=== PATIENT | female | born 1995 | race Two or more races ===

== ENCOUNTER 2018-12-23 22:12 | Inpatient (IN) ==
[2018-12-23 22:56] LABS: Appearance Urine Clear (Clear); Bacteria Urine Automated Negative (Negative); Bilirubin Urine Negative (Negative); Blood Urine Negative (Negative); Color Urine Yellow; Epithelial Cell Urine Auto >30 /lpf (0-5); Glucose Urine UA Negative (Negative); Leukocyte Esterase Urine 1+ (Negative); Nitrite Urine Negative (Negative); Protein Urine 1+ (Negative); RBC Urine Automated 0-4 /hpf (0-4); Specific Gravity Urine 1.032 (1.000-1.030); Urobilinogen Urine Negative (Negative)
--- NOTE | 2018-12-23 23:10 | Emergency Department Note ---
History of Present Illness General Chief Complaint: Mental Health Evaluation Stated Complaint: MENTAL HEALTH EVAL Time Seen by Provider: 12/23/18 22:56 Source: patient Mode of arrival: ambulatory Limitations: no limitations History of Present Illness Provider complaint: suicidal ideation and feels depressed Onset (ago): month(s) 2 Duration: constant and getting worse History of same: Yes Relieved By: + none Exacerbated By: + none Context: + significant life stressor Associated psychiatric symptoms: + depression and + suicidal ideation; no homicidal ideation, no auditory hallucinations and no visual hallucinations Associated symptoms: + denies other symptoms Treatments prior to arrival: + none If self harm: + admits thoughts of self harm and + has plan This is a 23-year-old female who presents the emergency department with worsening depression and suicidal ideation on a 302 warrant a signed by [facility] help after petitioning state was made by a friend. Patient is here with 2 friends at bedside. Patient is calm and cooperative and admits to worsening depression over the last 2 months which see states is due to academic stress this semester. Patient denies any other relationship problems with friends or family. Patient is not currently involved in a romantic relationship. Patient states today was the first time she had thoughts of wanting to hurt herself. Patient has c onsidered cutting herself, overdosing, however the 302 mentions that she had verbalized hanging herself also. Patient denies any prior history of anxiety or depression. Denies similar thoughts previously. Patient denies any thoughts of wanting to hurt anyone else, denies symptoms of paranoia or hallucinations. Patient is not currently taking any medications. Denies any chance of . Home Medications Home Medications Medication Instructions Recorded Confirmed Type No Known Home Medications 12/24/18 12/24/18 History Allergies Allergy/AdvReac Type Severity Reaction Status Date / Time No Known Allergies Allergy Unverified 12/24/18 07:25 Past Med/Surg History Social History Preferred Language: Vietnamese Feels Safe at Home: Yes Smoking Status: Never smoker Review of Systems See HPI for pertinent positives & negatives. and A total of 10 systems reviewed and were otherwise negative Physical Exam Vital Signs Vital Signs - 24 hr 12/23/18 22:19 12/24/18 00:15 12/24/18 07:24 Temperature 36.3 C L Temperature Source Oral Sepsis Recent Fever Within 48 Hours No Sepsis New/Unexplained Change in Mental Status No Sepsis Action Taken by Nursing No Action Required Pulse Rate 93 H Pulse Rate [Right Finger] 101 H 74 Pulse Rhythm [Right Finger] Regular Pulse Strength [Right Finger] Normal Respiratory Rate 18 20 20 Respiratory Effort / Characteristics Non-Labored Spontaneous Non-Labored Spontaneous Respiratory Depth Normal Normal Respiratory Pattern Regular Blood Pressure 140/90 Blood Pressure [Left Arm] 151/92 H 111/75 Blood Pressure Mean 106 Blood Pressure Mean [Left Arm] 111 87 Blood Pressure Position [Left Arm] Standing Pulse Oximetry 99 100 97 Oxygen Delivery Method Room Air Room Air Room Air GENERAL: alert, well appearing, well nourished, no distress, non-toxic EYE EXAM: normal conjunctiva, PERRL and EOM's grossly intact OROPHARYNX: no exudate, no erythema, lips, buccal mucosa, and tongue normal and mucous membranes are moist NECK: supple, no nuchal rigidity, no adenopathy, non-tender LUNGS: Clear to auscultation. Normal chest wall mechanics, no w/r/r HEART: no murmurs, S1 normal and S2 normal ABDOMEN: abdomen soft, non-tender, normo-active bowel sounds, no masses, no rebound or guarding. BACK: Back is symmetrical on inspection and there is no deformity, no midline tenderness, no CVA tenderness. SKIN: no rashes and no bruising UPPER EXTREMITIES: upper extremities are grossly normal. FROM, nml pulses b/l. LOWER EXTREMITIES: No pitting edema. FROM, nml pulses b/l. NEURO EXAM: Normal sensorium, cranial nerves II-XII grossly intact, normal speech, no gross weakness of arms, no gross weakness of legs. Gross sensation intact. Course 2258: Patient seen and examined in room A7. 0200: Pt seen and evaluated by psych supervisor case loading. Pt willing to sign in voluntarily and wants to be admitted to . 0725: Discussed with psych supervisor case loading. Pt still willing to be admitted voluntarily. Medical Decision Making Differential Diagnosis Differential diagnoses considered include mood disorder, infection, hypoglycemia, electrolyte abnormalities, cardiac sources, intracerebral event, toxicologic, neurologic, as well as others. Laboratory Data Result diagrams: 12/23/18 23:15 12/23/18 23:16 Lab Results 12/23/18 12/23/18 12/23/18 Range/Units 22:40 22:40 23:15 WBC 8.74 (4.8-10.8) K/uL RBC 4.20 (4.2-5.4) M/uL Hgb 13.1 (12.0-16.0) g/dL Hct 38.1 (37-47) % MCV 90.7 (80-100) fL MCH 31.2 (25-34) pg MCHC 34.4 (32-36) g/dL RDW Std Deviation 45.2 (36.4-46.3) fL RDW Coeff of Maribeth 13.7 (11.5-14.5) % Plt Count 287 (130-400) K/uL MPV 9.0 (7.4-10.4) fL Immature Gran % (Auto) 0.1 % Neut % (Auto) 75.0 % Lymph % (Auto) 18.6 % Amelia % (Auto) 4.7 % Eos % (Auto) 1.3 % Baso % (Auto) 0.3 % Immature Gran # (Auto) 0.01 (0.00-0.02) K/uL Neut # (Auto) 6.55 H (1.4-6.5) K/uL Lymph # (Auto) 1.63 (1.2-3.4) K/uL Amelia # (Auto) 0.41 (0.11-0.59) K/uL Eos # (Auto) 0.11 (0-0.5) K/uL Baso # (Auto) 0.03 (0-0.2) K/uL Sodium (136-145) mmol/L Potassium (3.5-5.1) mmol/L Chloride (98-107) mmol/L Carbon Dioxide (21-32) mmol/L Anion Gap (3-11) BUN (7-18) mg/dl Creatinine (0.6-1.2) mg/dl Est Cr Clr Drug Dosing ml/min Est GFR ( Amer) Est GFR (Non-Af Amer) BUN/Creatinine Ratio (10-20) Glucose (70-99) mg/dl Calcium (8.5-10.1) mg/dl Total Bilirubin (0.2-1) mg/dl AST (15-37) U/L ALT (12-78) U/L Alkaline Phosphatase (45-117) U/L Total Protein (6.4-8.2) gm/dl Albumin (3.4-5.0) gm/dl Globulin (2.5-4.0) gm/dl Albumin/Globulin Ratio (0.9-2) TSH (0.300-4.500) uIu/ml HCG, Qual (Negative) Urine Color Yellow Urine Appearance Clear (Clear) Urine pH 5.0 (4.5-7.5) Ur Specific [place] 1.032 H (1.000-1.030) Urine Protein 1+ H (Negative) Urine Glucose (UA) Negative (Negative) Urine Ketones 4+ H (Negative) Urine Blood Negative (Negative) Urine Nitrite Negative (Negative) Urine Bilirubin Negative (Negative) Urine Urobilinogen Negative (Negative) Ur Leukocyte Esterase 1+ H (Negative) Urine WBC (Auto) 10-30 H (0-5) /hpf Urine RBC (Auto) 0-4 (0-4) /hpf U Hyaline Cast (Auto) 10-30 H (0-5) /lpf U Epithel Cells (Auto) >30 H (0-5) /lpf Urine Bacteria (Auto) Negative (Negative) Salicylates (2.8-20) mg/dl Urine Opiates Screen Neg (Neg) Ur Methadone, Qual Neg (Neg) Acetaminophen (10-30) ug/ml Urine Barbiturates Neg (Neg) Ur Phencyclidine (PCP) Neg (Neg) U Amphetamin/Meth Scrn Neg (Neg) MDMA (Ecstasy) Screen Neg (Neg) U Benzodiazepines Scrn Neg (Neg) Ur Cocaine Metabolite Neg (Neg) U Marijuana (THC) Screen Neg (Neg) Ethyl Alcohol mg/dL (0-3) mg/dl 12/23/18 12/23/18 12/23/18 Range/Units 23:15 23:15 23:16 WBC (4.8-10.8) K/uL RBC (4.2-5.4) M/uL Hgb (12.0-16.0) g/dL Hct (37-47) % MCV (80-100) fL MCH (25-34) pg MCHC (32-36) g/dL RDW Std Deviation (36.4-46.3) fL RDW Coeff of Maribeth (11.5-14.5) % Plt Count (130-400) K/uL MPV (7.4-10.4) fL Immature Gran % (Auto) % Neut % (Auto) % Lymph % (Auto) % Amelia % (Auto) % Eos % (Auto) % Baso % (Auto) % Immature Gran # (Auto) (0.00-0.02) K/uL Neut # (Auto) (1.4-6.5) K/uL Lymph # (Auto) (1.2-3.4) K/uL Amelia # (Auto) (0.11-0.59) K/uL Eos # (Auto) (0-0.5) K/uL Baso # (Auto) (0-0.2) K/uL Sodium 140 (136-145) mmol/L Potassium 3.2 L (3.5-5.1) mmol/L Chloride 107 (98-107) mmol/L Carbon Dioxide 26 (21-32) mmol/L Anion Gap 7.0 (3-11) BUN 12 (7-18) mg/dl Creatinine 0.65 (0.6-1.2) mg/dl Est Cr Clr Drug Dosing 108.3 ml/min Est GFR ( Amer) 147.1 Est GFR (Non-Af Amer) 126.9 BUN/Creatinine Ratio 18.6 (10-20) Glucose 102 H (70-99) mg/dl Calcium 9.7 (8.5-10.1) mg/dl Total Bilirubin 0.6 (0.2-1) mg/dl AST 18 (15-37) U/L ALT 22 (12-78) U/L Alkaline Phosphatase 59 (45-117) U/L Total Protein 8.2 (6.4-8.2) gm/dl Albumin 4.2 (3.4-5.0) gm/dl Globulin 4.0 (2.5-4.0) gm/dl Albumin/Globulin Ratio 1.0 (0.9-2) TSH 0.930 (0.300-4.500) uIu/ml HCG, Qual Negative (Negative) Urine Color Urine Appearance (Clear) Urine pH (4.5-7.5) Ur Specific [place] (1.000-1.030) Urine Protein (Negative) Urine Glucose (UA) (Negative) Urine Ketones (Negative) Urine Blood (Negative) Urine Nitrite (Negative) Urine Bilirubin (Negative) Urine Urobilinogen (Negative) Ur Leukocyte Esterase (Negative) Urine WBC (Auto) (0-5) /hpf Urine RBC (Auto) (0-4) /hpf U Hyaline Cast (Auto) (0-5) /lpf U Epithel Cells (Auto) (0-5) /lpf Urine Bacteria (Auto) (Negative) Salicylates (2.8-20) mg/dl Urine Opiates Screen (Neg) Ur Methadone, Qual (Neg) Acetaminophen (10-30) ug/ml Urine Barbiturates (Neg) Ur Phencyclidine (PCP) (Neg) U Amphetamin/Meth Scrn (Neg) MDMA (Ecstasy) Screen (Neg) U Benzodiazepines Scrn (Neg) Ur Cocaine Metabolite (Neg) U Marijuana (THC) Screen (Neg) Ethyl Alcohol mg/dL < 3.0 (0-3) mg/dl 12/23/18 Range/Units 23:16 WBC (4.8-10.8) K/uL RBC (4.2-5.4) M/uL Hgb (12.0-16.0) g/dL Hct (37-47) % MCV (80-100) fL MCH (25-34) pg MCHC (32-36) g/dL RDW Std Deviation (36.4-46.3) fL RDW Coeff of Maribeth (11.5-14.5) % Plt Count (130-400) K/uL MPV (7.4-10.4) fL Immature Gran % (Auto) % Neut % (Auto) % Lymph % (Auto) % Amelia % (Auto) % Eos % (Auto) % Baso % (Auto) % Immature Gran # (Auto) (0.00-0.02) K/uL Neut # (Auto) (1.4-6.5) K/uL Lymph # (Auto) (1.2-3.4) K/uL Amelia # (Auto) (0.11-0.59) K/uL Eos # (Auto) (0-0.5) K/uL Baso # (Auto) (0-0.2) K/uL Sodium (136-145) mmol/L Potassium (3.5-5.1) mmol/L Chloride (98-107) mmol/L Carbon Dioxide (21-32) mmol/L Anion Gap (3-11) BUN (7-18) mg/dl Creatinine (0.6-1.2) mg/dl Est Cr Clr Drug Dosing ml/min Est GFR ( Amer) Est GFR (Non-Af Amer) BUN/Creatinine Ratio (10-20) Glucose (70-99) mg/dl Calcium (8.5-10.1) mg/dl Total Bilirubin (0.2-1) mg/dl AST (15-37) U/L ALT (12-78) U/L Alkaline Phosphatase (45-117) U/L Total Protein (6.4-8.2) gm/dl Albumin (3.4-5.0) gm/dl Globulin (2.5-4.0) gm/dl Albumin/Globulin Ratio (0.9-2) TSH (0.300-4.500) uIu/ml HCG, Qual (Negative) Urine Color Urine Appearance (Clear) Urine pH (4.5-7.5) Ur Specific [place] (1.000-1.030) Urine Protein (Negative) Urine Glucose (UA) (Negative) Urine Ketones (Negative) Urine Blood (Negative) Urine Nitrite (Negative) Urine Bilirubin (Negative) Urine Urobilinogen (Negative) Ur Leukocyte Esterase (Negative) Urine WBC (Auto) (0-5) /hpf Urine RBC (Auto) (0-4) /hpf U Hyaline Cast (Auto) (0-5) /lpf U Epithel Cells (Auto) (0-5) /lpf Urine Bacteria (Auto) (Negative) Salicylates < 1.7 L (2.8-20) mg/dl Urine Opiates Screen (Neg) Ur Methadone, Qual (Neg) Acetaminophen < 2 L (10-30) ug/ml Urine Barbiturates (Neg) Ur Phencyclidine (PCP) (Neg) U Amphetamin/Meth Scrn (Neg) MDMA (Ecstasy) Screen (Neg) U Benzodiazepines Scrn (Neg) Ur Cocaine Metabolite (Neg) U Marijuana (THC) Screen (Neg) Ethyl Alcohol mg/dL (0-3) mg/dl Blood Pressure Blood Pressure Findings: Normal blood pressure MDM Narrative Pt here calm and cooperative. Willing to sign in voluntarily. Pt made 302 warrant by [facility] initially. No prior psych hx. VS stable. Labs reassuring. UA suboptimal and suggestive of dehydration. Pt with no symptoms. Will await urine culture at this time. Impression & Plan Depression, Suicidal ideation Discharge Plan Visit Data Chief Complaint: Mental Health Evaluation Stated Complaint: MENTAL HEALTH EVAL ED Provider: Sun Wolf Discharge Problem: Depression, Suicidal ideation Forms Stand Alone Forms: Edai Prescriptions Prescriptions: No Action No Known Home Medications RF: 0 Discharge Problem: Depression Qualifiers: Depression Type: unspecified Qualified Code(s): F32.9 - Major depressive disorder, single episode, unspecified
[2018-12-23 23:11] LABS: Amphetamines+Metham, Urine Neg (Neg); Barbiturates, Urine Neg (Neg); Benzodiazepine, Urine Neg (Neg); Cocaine, Urine Neg (Neg); MDMA (Ecstacy), Urine Neg (Neg); Methadone, Urine Neg (Neg); Opiate, Urine Neg (Neg); Phencyclidine, Urine Neg (Neg)
[2018-12-23 23:31] LABS: Basophils # (auto) 0.03 K/uL (0-0.2); Basophils % (auto) 0.3 %; Eosinophils # (auto) 0.11 K/uL (0-0.5); Eosinophils % (auto) 1.3 %; Hematocrit (blood only) 38.1 % (37-47); Hemoglobin 13.1 g/dL (12.0-16.0); Immature Granulocytes # (auto) 0.01 K/uL (0.00-0.02); Immature Granulocytes % (auto) 0.1 %; Lymphocytes # (auto) 1.63 K/uL (1.2-3.4); Lymphocytes % (auto) 18.6 %; Mean Corpuscular Hgb Conc 34.4 g/dL (32-36); Mean Corpuscular Volume 90.7 fL (80-100); Monocytes # (auto) 0.41 K/uL (0.11-0.59); Monocytes % (auto) 4.7 %; Neutrophils # (auto) 6.55 K/uL (1.4-6.5); Platelet Count 287 K/uL (130-400); RDW Coefficient of Variation 13.7 % (11.5-14.5); RDW Standard Deviation 45.2 fL (36.4-46.3); White Blood Count 8.74 K/uL (4.8-10.8)
[2018-12-23 23:50] LABS: Albumin Level 4.2 gm/dl (3.4-5.0); BUN Creatinine Ratio 18.6 (10-20); Calcium 9.7 mg/dl (8.5-10.1); Creatinine Clr Calc Pharmacy 108.3 ml/min; Est GFR (African American) 147.1; Est GFR (Non-African American) 126.9; Potassium 3.2 mmol/L (3.5-5.1)
[2018-12-23 23:54] LABS: Ketones Urine 4+ (Negative)
[2018-12-24] LABS: Bilirubin,Total 0.6 mg/dl (0.2-1); Total Protein 8.2 gm/dl (6.4-8.2)
[2018-12-24 00:13] LABS: Pregnancy Test, Serum Negative (Negative)
[2018-12-24 00:31] LABS: Acetaminophen < 2 ug/ml (10-30)
[2018-12-24 00:32] LABS: Salicylate < 1.7 mg/dl (2.8-20)
[2018-12-24] MEDS ORDERED: BISMUTH SUBSALICYLATE PER ML OMNICELL CHARGE PO PRN (13:11)
[2018-12-24] MEDS ORDERED: ALUMINUM/MAGNESIUM SUSP 30 ML UDC PO PRN (13:11)
[2018-12-24] MEDS ORDERED: SODIUM CHLORIDE 0.65% NA SOLN 45 ML (OCEAN) PRN (13:11)
[2018-12-24] MEDS ORDERED: MAGNESIUM HYDROXIDE SUSP 30 ML UDC PO PRN (13:11)
[2018-12-24] MEDS ORDERED: ACETAMINOPHEN 325 MG TAB PO PRN (13:11)
--- NOTE | 2018-12-24 13:57 | Emergency Department Note ---
ED Visit Note Patient was signed out to me at the change of shift by Dr. de la cruz. Patient has suicidal thoughts and was agreeable in . Patient was accepted to 3 [facility]. on . . : Depression Qualifiers: Depression Type: unspecified Qualified Code(s): F32.9 - Major depressive disorder, single episode, unspecified
--- NOTE | 2018-12-24 18:36 | History & Physical ---
Date of Service December 24, 2018 Impression / Recommendations Impression 23-year-old female admitted voluntarily for inpatient psychiatric treatment, signing 72-hour notice immediately after admission to the unit. Pt reports worsening anxiety this semester, predominantly related to school stress. Pt states she had experienced SI yesterday due to the level of anxiety she had been experiencing. She reported specific plan to hang herself, but was brought to ED last evening after friends had contacted [facility]. By patient's reports alone, she does not meet criteria for a formal anxiety disorder, but anxiety has been elevated to the point of consideration to end her life. Given lack of clear anxiety disorder, there is no obvious indication to suggest need for medications at this time. Will attempt to gather collateral information, to either confirm patient's reports or determine if there is any minimization of symptoms. At this time, patient requires inpatient psychiatric treatment in order to ensure safety. With reported incidence of SI, patient is at risk of decompensation and harm to herself if discharged prematurely. Dr. Ashtyn Canela was directly involved in review and discussion of the patient's case and participated in medical decision making regarding treatment recommendations. (1) Suicidal ideation: 12/24 - Admitted to a locked inpatient behavioral health unit, on q15 minute safety checks - Encourage medication initiation/adjustments as indicated - Encourage participation in group and recreational therapies - Gather collateral information from outpatient providers - Suggest family meeting to involve outpatient supports in safety planning - Arrange appropriate aftercare (2) Anxiety disorder: 12/24 - R/O generalized anxiety disorder, panic disorder, as well as depressive disorder; no clear criteria provided by patient, but there could be some aspect of minimizing - No indication for initiation of medications based on patient's reports, continue to reassess need during her stay - Gather collateral information from outpatient supports, would be helpful to speak with her friends and petitioner on 302 - Pt has submitted her 72-hr notice, will attempt adequate aftercare arrangements and safety planning in that timeframe Anxiety disorder type: unspecified anxiety disorder Qualified Code(s): F41.9 - Anxiety disorder, unspecified Inventory Assets Strengths: support from friends, intelligence Needs: academic stress, need to develop healthy and effective coping strategies Risk Factors Assessment Male: No : No Do You Have Access To A Gun?: No Health Problems: No Mental Health Diagnoses: No Substance Use Disorders: No Previous Attempt: No Family History of Suicide: No Previous Psychiatric Hospitalization: No Hopelessness: Yes (occasionally) Smoker: No Protective Factors Assessment Zoroastrian Beliefs: No : No Responsible for Young Children: No Employed: No Stable Relationships: Yes Supportive Family: Yes Psychiatric History Identifying Data CHANELL BAILON is a 23-year-old F [employer] Senior who currently lives in [place], [place]. Pt denies previous psychiatric history, but was brought to ED on a 302 warrant completed by [facility]. Pt was admitted on 12/24/18 14:02 on a 201 voluntary commitment for worsening anxiety and SI with reported plan to hang herself. Pt signed 72-hour notice upon admission. Information is gathered from the patient and is considered to be reliable. Chief Complaint "It's just been a lot of stress from school." History of Present Illness Chanell Bailon is a 23-year-old female [employer] Senior who presented to the ED on a 302 warrant for anxiety and suicidal ideation voiced to friends. Pt was reportedly willing for treatment and was admitted voluntarily, states she signed a 72-hour notice after arriving on the unit. Pt reports primary stressor of academic stress. Pt tells this provider, "it's just been a lot of stress, it only got back this semester." Pt states that she is taking a heavy course load, as this was to be her last semester. Pt states she is not struggling in regard to grades, but has been reaching her limit in regard to keeping up with her high academic standards. Pt reports that she had experienced extreme anxiety last evening, and had disclosed to her friends thoughts of harming herself. Pt states she had a plan to hang herself, but her friend was present with her. Pt tells this provider that she believes she was likely to act on these thoughts had her friend not been present. Pt denies previous episodes of SI, and friends were concerned about the patient's ability to keep herself safe. Pt shares with this provider that anxiety related to school performance began in high school. She admits that she has always been pleased with her school performance, but is under additional stress to keep up her grades now that she is taking more classes. 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 Pt is aware that she may need to complete an extra semester of school in order to finish her course work and reduce stress. Pt reports symptoms of anxiety of crying spells and increased emotionality with stress, difficulty concentrating, decreased appetite, and occasional restlessness. Physical symptoms of anxiety include tremor and muscle tension. Pt does not believe she has ever experienced a panic episode before. Pt denies depressive symptoms, stating her mood has been "about normal" for her. She does admit to hopelessness yesterday, in the context of her suicidality and increased anxiety. Pt states she has been intentional about exercising more routinely, and finds it to be beneficial for stress. She has no psychiatric history, has not been on psychotropic medications, and denies previous therapy sessions. Pt denies HI, SIB, A/V hallucinations, paranoia, susi/hypomania, other symptoms more suggestive of a bipolar presentation, OCD, PTSD, eating disorder, and other specific psychiatric symptoms. Past Psychiatric History Previous Psych History: Pt denies previous psychiatric history. No previous medication trials. No previous experience with outpatient therapy. Current Psychiatric Diagnosis: Anxiety disorder, unspecified Outpatient Services: None presently Previous Psych Admissions: None Do You Have Access To A Gun?: No History of Previous Suicide Attempt: No Describe Attempts in the Past: Denies prior attempts, 'situational crisis' Past Medication Trials: None Past Head Trauma/Neuro History History of Concussion/Seizure: No Allergies Allergy/AdvReac Type Severity Reaction Status Date / Time No Known Allergies Allergy Unverified 12/24/18 07:25 Home Medications Home Medications Medication Instructions Recorded Confirmed Type No Known Home Medications 12/24/18 12/24/18 History Family History Family History of: None Family Mental Health History Comment: father alcoholic. Alcohol History Hx of Alcohol Use Over the Past 12 Months: Yes (1X/week/2 drinks) AUDIT Total Score: 2 Smoking Use Have You Smoked or Used Tobacco Products in the Last 30 Days: No Smoking Status: Never smoker Substance History Hx of Prescription Med Misuse Over the Past 12 Months: No Hx of Over the Counter Med Misuse Over the Past 12 Months: No Hx of Inhalent Misuse Over the Past 12 Months: No Hx of Organic Substance Use Over the Past 12 Months: No Hx of Illegal Substances/Street Drug Use Over Past 12 Months: No Problems as a Result of Past Substance Use: None Identified Personal History Living Arrangements: [facility]artment Born In: [place], near [facility] Childhood: Pt grew up near [place], [place]. Grew up in a home with her mother and older brother. Pt's parents when she was 9y/o, she denies current relationship with her father. Pt considers her home life to be "normal." Highest Grade Completed: High School Graduate Highest Grade Completed Comment: currently senior at [employer] studying political science. Employment Status: Student Marital Status: Single Number Of Children: none Beliefs That Will Affect Care: None Current Legal Problems: No Hx Legal Problems: No Hx Traumatic Life Events: No Patient History Family History Other Breast cancer Dyslipidemia Social History Preferred Language: Dutch Communication Ability: Effective Plush Brusher Required: No Beliefs That Will Affect Care: None Feels Safe at Home: Yes Smoking Status: Never smoker Review of Systems Constitutional: reports weight loss of 20lbs in the past 2 months - combination of decreased appetite and increased exercise Cardiovascular: denied Respiratory: denied Gastrointestinal: denied Neurological: denied Psychiatric: denies symptoms other than stated above Total of at least 10 systems reviewed, pertinent positives as above and in HPI. Physical Exam Psychiatric Orientation: alert, oriented x 3 and cooperative Apperance: appropriately dressed (in paper scrubs), appropriately groomed and appeared stated age Obese female of what is believed to be descent, well-groomed with long hair. Level of hygiene appears adequate. Has yet to change out of paper scrubs. Seated in no acute distress Eye Contact: good eye contact Motor Behavior: steady gait and station and no abnormal motor movements Speech: normal rate/rhythm/volume of speech Affect: + blunted affect (not overtly depressed) Mood: + anxious mood ("there's just a lot of stress" and "I get emotional a lot") Thought Process: goal directed thought process, linear/logical thought process and clear/coherent thought process Thought Content: reality based without delusions Suicidal Thoughts: denies suicidal thoughts (reports SI prior to admission); + reports suicidal plan (reported plan to hang herself) and + reports suicidal in tent (admits it is likely she would have acted on SI if friend was not present) Homicidal Thoughts: denies homicidal thoughts Hallucinations: no auditory hallucinations and no visual hallucinations Cognition: recent memory grossly intact, remote memory grossly intact, attention grossly intact and language grossly intact Estimated Intelligence: average estimated intelligence and consistent with education level Insight: + limited insight Judgement: + limited judgement Vital Signs (Past 24 Hours) Last Vital Signs Temp 36.7 C 12/24/18 14:28 Pulse 55 L 12/24/18 14:28 Resp 14 12/24/18 14:28 BP 112/75 12/24/18 14:28 Pulse Ox 100 12/24/18 12:15 A physical exam was performed in the ER prior to admission to the unit by Dr. Sun Wolf DO. I accept that physical as correct/medical clearance for the inpatient physical exam. Results & Data Laboratory Results Laboratory Results - last 24 hr 12/23/18 12/23/18 12/23/18 22:40 22:40 23:15 WBC 8.74 RBC 4.20 Hgb 13.1 Hct 38.1 MCV 90.7 MCH 31.2 MCHC 34.4 RDW Std Deviation 45.2 RDW Coeff of Maribeth 13.7 Plt Count 287 MPV 9.0 Immature Gran % (Auto) 0.1 Neut % (Auto) 75.0 Lymph % (Auto) 18.6 Elliott % (Auto) 4.7 Eos % (Auto) 1.3 Baso % (Auto) 0.3 Immature Gran # (Auto) 0.01 Neut # (Auto) 6.55 H Lymph # (Auto) 1.63 Elliott # (Auto) 0.41 Eos # (Auto) 0.11 Baso # (Auto) 0.03 Sodium Potassium Chloride Carbon Dioxide Anion Gap BUN Creatinine Est Cr Clr Drug Dosing Est GFR ( Amer) Est GFR (Non-Af Amer) BUN/Creatinine Ratio Glucose Calcium Total Bilirubin AST ALT Alkaline Phosphatase Total Protein Albumin Globulin Albumin/Globulin Ratio TSH HCG, Qual Urine Color Yellow Urine Appearance Clear Urine pH 5.0 Ur Specific Lupton 1.032 H Urine Protein 1+ H Urine Glucose (UA) Negative Urine Ketones 4+ H Urine Blood Negative Urine Nitrite Negative Urine Bilirubin Negative Urine Urobilinogen Negative Ur Leukocyte Esterase 1+ H Urine WBC (Auto) 10-30 H Urine RBC (Auto) 0-4 U Hyaline Cast (Auto) 10-30 H U Epithel Cells (Auto) >30 H Urine Bacteria (Auto) Negative Salicylates Urine Opiates Screen Neg Ur Methadone, Qual Neg Acetaminophen Urine Barbiturates Neg Ur Phencyclidine (PCP) Neg U Amphetamin/Meth Scrn Neg MDMA (Ecstasy) Screen Neg U Benzodiazepines Scrn Neg Ur Cocaine Metabolite Neg U Marijuana (THC) Screen Neg Ethyl Alcohol mg/dL 12/23/18 12/23/18 12/23/18 23:15 23:15 23:16 WBC RBC Hgb Hct MCV MCH MCHC RDW Std Deviation RDW Coeff of Maribeth Plt Count MPV Immature Gran % (Auto) Neut % (Auto) Lymph % (Auto) Elliott % (Auto) Eos % (Auto) Baso % (Auto) Immature Gran # (Auto) Neut # (Auto) Lymph # (Auto) Elliott # (Auto) Eos # (Auto) Baso # (Auto) Sodium 140 Potassium 3.2 L Chloride 107 Carbon Dioxide 26 Anion Gap 7.0 BUN 12 Creatinine 0.65 Est Cr Clr Drug Dosing 108.3 Est GFR ( Amer) 147.1 Est GFR (Non-Af Amer) 126.9 BUN/Creatinine Ratio 18.6 Glucose 102 H Calcium 9.7 Total Bilirubin 0.6 AST 18 ALT 22 Alkaline Phosphatase 59 Total Protein 8.2 Albumin 4.2 Globulin 4.0 Albumin/Globulin Ratio 1.0 TSH 0.930 HCG, Qual Negative Urine Color Urine Appearance Urine pH Ur Specific Lupton Urine Protein Urine Glucose (UA) Urine Ketones Urine Blood Urine Nitrite Urine Bilirubin Urine Urobilinogen Ur Leukocyte Esterase Urine WBC (Auto) Urine RBC (Auto) U Hyaline Cast (Auto) U Epithel Cells (Auto) Urine Bacteria (Auto) Salicylates Urine Opiates Screen Ur Methadone, Qual Acetaminophen Urine Barbiturates Ur Phencyclidine (PCP) U Amphetamin/Meth Scrn MDMA (Ecstasy) Screen U Benzodiazepines Scrn Ur Cocaine Metabolite U Marijuana (THC) Screen Ethyl Alcohol mg/dL < 3.0 12/23/18 23:16 WBC RBC Hgb Hct MCV MCH MCHC RDW Std Deviation RDW Coeff of Maribeth Plt Count MPV Immature Gran % (Auto) Neut % (Auto) Lymph % (Auto) Elliott % (Auto) Eos % (Auto) Baso % (Auto) Immature Gran # (Auto) Neut # (Auto) Lymph # (Auto) Elliott # (Auto) Eos # (Auto) Baso # (Auto) Sodium Potassium Chloride Carbon Dioxide Anion Gap BUN Creatinine Est Cr Clr Drug Dosing Est GFR ( Amer) Est GFR (Non-Af Amer) BUN/Creatinine Ratio Glucose Calcium Total Bilirubin AST ALT Alkaline Phosphatase Total Protein Albumin Globulin Albumin/Globulin Ratio TSH HCG, Qual Urine Color Urine Appearance Urine pH Ur Specific Lupton Urine Protein Urine Glucose (UA) Urine Ketones Urine Blood Urine Nitrite Urine Bilirubin Urine Urobilinogen Ur Leukocyte Esterase Urine WBC (Auto) Urine RBC (Auto) U Hyaline Cast (Auto) U Epithel Cells (Auto) Urine Bacteria (Auto) Salicylates < 1.7 L Urine Opiates Screen Ur Methadone, Qual Acetaminophen < 2 L Urine Barbiturates Ur Phencyclidine (PCP) U Amphetamin/Meth Scrn MDMA (Ecstasy) Screen U Benzodiazepines Scrn Ur Cocaine Metabolite U Marijuana (THC) Screen Ethyl Alcohol mg/dL Current Inpatient Medications Current Inpatient Medications: Current Inpatient Medications Acetaminophen (Tylenol) 650 mg PO Q4H PRN PRN Reason: Headache or Minor Fever Stop: 01/23/19 13:10 Al Hydrox/Mg Hydrox/Simethicone (Maalox) 30 ml PO Q4H PRN PRN Reason: GI Upset Stop: 01/23/19 13:10 Bismuth Subsalicylate (Kaopectate) 15 ml PO PRN PRN PRN Reason: Loose Stool Stop: 01/23/19 13:10 Hydroxyzine HCl (Vistaril) 25 mg PO Q4H PRN PRN Reason: Anxiety Stop: 01/23/19 13:10 Hydroxyzine HCl (Vistaril) 50 mg PO HSZ PRN PRN Reason: Insomnia Stop: 01/23/19 13:10 Magnesium Hydroxide (Milk Of Magnesia) 30 ml PO DAILY PRN PRN Reason: Heartburn Stop: 01/23/19 13:10 Sodium Chloride ([place] Nasal) 1 - 2 sprays NA PRN PRN PRN Reason: Nasal Dryness/Congestion Stop: 01/23/19 13:10 CPT Code CPT Code Initial Hospital Care: [id number]
--- NOTE | 2018-12-25 09:31 | Psychiatric Progress Note ---
Date of Service December 25, 2018 Impression / Recommendations Impression Patient feels safe in the hospital, and is denying SI here, but reports ongoing anxiety related to severe school stress. Will attempt to gather collateral information, to either confirm patient's reports or determine if there is any minimization of symptoms. She will need a family meeting with her mother, follow-up with the [facility] regarding her academic issues, and referral for outpatient therapy. (1) Suicidal ideation: 12/24 - Admitted to a locked inpatient behavioral health unit, on q15 minute safety checks - Encourage medication initiation/adjustments as indicated - Encourage participation in group and recreational therapies - Gather collateral information from outpatient providers - Suggest family meeting to involve outpatient supports in safety planning - Arrange appropriate aftercare 12/25 - Patient feels safe here. Encourage focus on healthy coping skills and a discharge safety plan. (2) Anxiety disorder: 12/24 - R/O generalized anxiety disorder, panic disorder, as well as depressive disorder; no clear criteria provided by patient, but there could be some aspect of minimizing - No indication for initiation of medications based on patient's reports, continue to reassess need during her stay - Gather collateral information from outpatient supports, would be helpful to speak with her friends and petitioner on 302 - Pt has submitted her 72-hr notice, will attempt adequate aftercare arrangements and safety planning in that timeframe 12/25 -Continue to attend and participate in groups and therapy, work on coping skills, and refer for outpatient therapy. Family meeting with mother. Inventory Assets Strengths: support from friends, intelligence Needs: academic stress, need to develop healthy and effective coping strategies Risk Factors Assessment Male: No : No Do You Have Access To A Gun?: No Health Problems: No Mental Health Diagnoses: No Substance Use Disorders: No Previous Attempt: No Family History of Suicide: No Previous Psychiatric Hospitalization: No Hopelessness: Yes (occasionally) Smoker: No Protective Factors Assessment Cheondoism Beliefs: No : No Responsible for Young Children: No Employed: No Stable Relationships: Yes Supportive Family: Yes Interval History Identifying Information CHANELL DALE is a 23-year-old 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 Pt denies previous psychiatric history, but was brought to ED on a 302 warrant completed by [facility]. Pt was admitted on 12/24/18 14:02 on a 201 voluntary commitment for worsening anxiety and SI with reported plan to hang herself. Pt signed 72-hour notice upon admission. Chief Complaint "Better, less stress here". Review of Systems Sleep Information Total Hours of Sleep: 8.25 Meal Information Percent Meal Consumed - Dinner: 100 Subjective Subjective Patient was seen & assessed and interval progress reviewed with Treatment Team. Staff report she submitted a 72-hour notice requesting to withdraw from treatment shortly after signing in voluntarily. She endorsed anxiety related to school stress, and said she would like help to learn how to manage that. She had already told her mother that she would not be able to graduate, and feels she is supportive. On my assessment, the patient reports she is feeling better here, as she is away from her stress (school). She confirms that she found out two days ago that she is failing her political science class, which means she won't be able to graduate as planned in January, and will need to come back in the fall. She knew she was doing poorly in the class, but hoped to be able to work something out with the professor. She heard from the professor on Saturday that she would not be able to pass and would have to take the class again. She says mood was okay prior to that, an "went way down" after finding out she couldn't graduate. She admits to SI at that time, but denies suicidal thoughts since coming to the hospital. She reports good support form a friend and her family (lives with mother outside of [facility] in summer). She is planning to go home over the summer and get a job. She is hoping to work on healthy coping strategies here, and is willing for a meeting with her mother. Physical Exam Psychiatric Orientation: alert, oriented x 3 and cooperative Apperance: appropriately dressed, appropriately groomed and appeared stated age Eye Contact: + fair eye contact Motor Behavior: steady gait and station and no abnormal motor movements Speech: normal rate/rhythm/volume of speech Affect: + anxious affect "Better." Thought Process: goal directed thought process Thought Content: reality based without delusions Suicidal Thoughts: denies suicidal thoughts Homicidal Thoughts: denies homicidal thoughts Hallucinations: no auditory hallucinations Cognition: recent memory grossly intact, attention grossly intact and language grossly intact Estimated Intelligence: consistent with education level Insight: + fair insight Judgement: + fair judgement Vital Signs (Past 24 Hours) Last Vital Signs Temp 36.3 C L 12/25/18 06:00 Pulse 69 12/25/18 06:00 Resp 16 12/25/18 06:00 BP 107/69 12/25/18 06:00 Pulse Ox 100 12/24/18 12:15 Results & Data Current Inpatient Medications Current Inpatient Medications: Current Inpatient Medications Acetaminophen (Tylenol) 650 mg PO Q4H PRN PRN Reason: Headache or Minor Fever Stop: 01/23/19 13:10 Al Hydrox/Mg Hydrox/Simethicone (Maalox) 30 ml PO Q4H PRN PRN Reason: GI Upset Stop: 01/23/19 13:10 Bismuth Subsalicylate (Kaopectate) 15 ml PO PRN PRN PRN Reason: Loose Stool Stop: 01/23/19 13:10 Hydroxyzine HCl (Vistaril) 25 mg PO Q4H PRN PRN Reason: Anxiety Stop: 01/23/19 13:10 Hydroxyzine HCl (Vistaril) 50 mg PO HSZ PRN PRN Reason: Insomnia Stop: 01/23/19 13:10 Magnesium Hydroxide (Milk Of Magnesia) 30 ml PO DAILY PRN PRN Reason: Heartburn Stop: 01/23/19 13:10 Sodium Chloride ([place] Nasal) 1 - 2 sprays NA PRN PRN PRN Reason: Nasal Dryness/Congestion Stop: 01/23/19 13:10 Post Discharge Appointments Primary Care Physician Name Of Family Doctor: Dr Kaleigh Bautista [facility] Therapist Name of Therapist: None Stake Driver Name of Stake Driver: None CPT Code CPT Code 65312 (1) Anxiety disorder Anxiety disorder type: unspecified anxiety disorder Qualified Code(s): F41.9 - Anxiety disorder, unspecified
--- NOTE | 2018-12-26 09:58 | Psychiatric Progress Note ---
Date of Service December 26, 2018 Impression / Recommendations Impression Patient reports ongoing anxiety in regard to school stress, but feels she has been benefiting from group and recreational therapy on the unit. She states she has been focusing on different coping strategies and ways to implement them into her daily routine. Patient had a visit with her mother last evening and is scheduled for a family meeting tomorrow morning. We are hoping to obtain collateral information to ensure that there are not deeper concerns related to mood or anxiety expressed by the patient's mother. We will continue to work to arrange outpatient therapy and communication with the [facility] regarding arrangements after discharge. Patient has yet to complete a safety plan and without involvement of outpatient supports is at high risk of decompensation shortly after discharge. She is at high risk of recurrence of SI, and there is concern that without proper medication of risk factors and established outpatient supports she may take steps to harm herself. (1) Suicidal ideation: 12/24 - Admitted to a locked inpatient behavioral health unit, on q15 minute safety checks - Encourage medication initiation/adjustments as indicated - Encourage participation in group and recreational therapies - Gather collateral information from outpatient providers - Suggest family meeting to involve outpatient supports in safety planning - Arrange appropriate aftercare 12/25 - Patient feels safe here. Encourage focus on healthy coping skills and a discharge safety plan. 12/26 - Denies SI today, was encouraged to seek out a counselor when she is ready to work on her safety plan, as she is yet to complete one (2) Anxiety disorder: 12/24 - R/O generalized anxiety disorder, panic disorder, as well as depressive disorder; no clear criteria provided by patient, but there could be some aspect of minimizing - No indication for initiation of medications based on patient's reports, continue to reassess need during her stay - Gather collateral information from outpatient supports, would be helpful to speak with her friends and petitioner on 302 - Pt has submitted her 72-hr notice, will attempt adequate aftercare arrangements and safety planning in that timeframe 12/25 -Continue to attend and participate in groups and therapy, work on coping skills, and refer for outpatient therapy. Family meeting with mother. 12/26 -Patient has been actively participating in group and recreational therapy, working on development of coping skills -Family meeting scheduled with mother tomorrow morning at 10 AM. Inventory Assets Strengths: support from friends, intelligence Needs: academic stress, need to develop healthy and effective coping strategies Risk Factors Assessment Male: No : No Do You Have Access To A Gun?: No Health Problems: No Mental Health Diagnoses: No Substance Use Disorders: No Previous Attempt: No Family History of Suicide: No Previous Psychiatric Hospitalization: No Hopelessness: Yes (occasionally) Smoker: No Protective Factors Assessment Sabianism Beliefs: No : No Responsible for Young Children: No Employed: No Stable Relationships: Yes Supportive Family: Yes Interval History Identifying Information CHANELL DALE is a 23-year-old F [employer] Senior who currently lives in [place], [place]. Pt denies previous psychiatric history, but was brought to ED on a 302 warrant completed by [facility]. Pt was admitted on 12/24/18 14:02 on a 201 voluntary commitment for worsening anxiety and SI with reported plan to hang herself. Pt signed 72-hour notice upon admission. Chief Complaint "I went to all the activities". Review of Systems Notes Constitutional: denied Cardiovascular: denied Respiratory: denied Gastrointestinal: denied Neurological: denied Psychiatric: denies symptoms other than stated above Total of at least 10 systems reviewed, pertinent positives as above and in HPI. Sleep Information Total Hours of Sleep: 7.25 Meal Information Percent Meal Consumed - Breakfast: 75 Percent Meal Consumed - Lunch: 75 Percent Meal Consumed - Dinner: 80 Subjective Subjective Patient was seen & assessed and interval progress reviewed with Treatment Team. Staff reports the patient has been participating appropriately in groups. Meeting is scheduled with her mother for Saturday. Pt was seen today to assess progress since admission. Pt states she is doing well and feels she is benefitting from her time on the unit. Pt states, "I went to all activities and I was able to learn how to cope with stress." She states she could see herself using exercise, journaling, or reading as ways to reduce stress and anxiety. Pt's mother came into town last evening and the patient states their visit went well. They are currently scheduled to have a family meeting tomorrow morning at 10 AM. Patient denies any suicidality today, and states she does not have any specific concerns or topics to discuss during her meeting. We reviewed necessary steps and looking towards discharge, which include this meeting as well as completing a safety plan. Patient was provided with examples, and encouraged to reach out to a counselor on the unit to work on her safety plan together. Physical Exam Psychiatric Orientation: alert, oriented x 3 and cooperative Apperance: appropriately dressed and appropriately groomed Eye Contact: good eye contact Motor Behavior: steady gait and station and no abnormal motor movements Speech: normal rate/rhythm/volume of speech Affect: euthymic affect and + anxious affect (appears mildly anxious) Mood: + anxious mood; no depressed mood Thought Process: goal directed thought process, linear/logical thought process and clear/coherent thought process Thought Content: reality based without delusions Suicidal Thoughts: denies suicidal thoughts; + reports suicidal plan (reported plan to hang herself) and + reports suicidal intent (admits it is likely she would have acted on SI if friend was not present) Homicidal Thoughts: denies homicidal thoughts Hallucinations: no auditory hallucinations and no visual hallucinations Cognition: recent memory grossly intact, remote memory grossly intact, attention grossly intact and language grossly intact Estimated Intelligence: consistent with education level Insight: + fair insight Judgement: + fair judgement Vital Signs (Past 24 Hours) Last Vital Signs Temp 36.3 C L 12/26/18 06:00 Pulse 67 12/26/18 07:19 Resp 16 12/26/18 06:00 BP 103/66 12/26/18 07:19 Pulse Ox 100 12/24/18 12:15 Results & Data Current Inpatient Medications Current Inpatient Medications: Current Inpatient Medications Acetaminophen (Tylenol) 650 mg PO Q4H PRN PRN Reason: Headache or Minor Fever Stop: 01/23/19 13:10 Al Hydrox/Mg Hydrox/Simethicone (Maalox) 30 ml PO Q4H PRN PRN Reason: GI Upset Stop: 01/23/19 13:10 Bismuth Subsalicylate (Kaopectate) 15 ml PO PRN PRN PRN Reason: Loose Stool Stop: 01/23/19 13:10 Hydroxyzine HCl (Vistaril) 25 mg PO Q4H PRN PRN Reason: Anxiety Stop: 01/23/19 13:10 Hydroxyzine HCl (Vistaril) 50 mg PO HSZ PRN PRN Reason: Insomnia Stop: 01/23/19 13:10 Magnesium Hydroxide (Milk Of Magnesia) 30 ml PO DAILY PRN PRN Reason: Heartburn Stop: 01/23/19 13:10 Sodium Chloride ([place] Nasal) 1 - 2 sprays NA PRN PRN PRN Reason: Nasal Dryness/Congestion Stop: 05/10/19 13:10 Post Discharge Appointments Primary Care Physician Name Of Family Doctor: Dr Kyra Umaña - [facility] Time of Appointment with PCP: follow up as needed. Provider Appointment Comment: [id number], [place] [address] Therapist Name of Therapist: None Quality Assurance Inspector Name of Quality Assurance Inspector: [facility] Phone Number for Quality Assurance Inspector: [phone] Date of Appointment with Quality Assurance Inspector: 12/29/18 Time of Appointment with Quality Assurance Inspector: 11:30am Case Management Appointment Comment: [address] [place] [address] CPT Code CPT Code 86562 (1) Anxiety disorder Anxiety disorder type: unspecified anxiety disorder Qualified Code(s): F41.9 - Anxiety disorder, unspecified
--- NOTE | 2018-12-27 13:25 | Discharge Summary ---
Date of Service December 27, 2018 History of Present Illness Janey Bailon is a 23-year-old female [employer] Senior who presented to the ED on a 302 warrant for anxiety and suicidal ideation voiced to friends. Pt was reportedly willing for treatment and was admitted voluntarily, states she signed a 72-hour notice after arriving on the unit. Pt reports primary stressor of academic stress. Pt tells this provider, "it's just been a lot of stress, it only got back this semester." Pt states that she is taking a heavy course load, as this was to be her last semester. Pt states she is not struggling in regard to grades, but has been reaching her limit in regard to keeping up with her high academic standards. Pt reports that she had experienced extreme anxiety last evening, and had disclosed to her friends thoughts of harming herself. Pt states she had a plan to hang herself, but her friend was present with her. Pt tells this provider that she believes she was likely to act on these thoughts had her friend not been present. Pt denies previous episodes of SI, and friends were concerned about the patient's ability to keep herself safe. Pt shares with this provider that anxiety related to school performance began in high school. She admits that she has always been pleased with her school performance, but is under additional stress to keep up her grades now that she is taking more classes. 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 Pt is aware that she may need to complete an extra semester of school in order to finish her course work and reduce stress. Pt reports symptoms of anxiety of crying spells and increased emotionality with stress, difficulty concentrating, decreased appetite, and occasional restlessness. Physical symptoms of anxiety include tremor and muscle tension. Pt does not believe she has ever experienced a panic episode before. Pt denies depressive symptoms, stating her mood has been "about normal" for her. She does admit to hopelessness yesterday, in the context of her suicidality and increased anxiety. Pt states she has been intentional about exercising more routinely, and finds it to be beneficial for stress. She has no psychiatric history, has not been on psychotropic medications, and denies previous therapy sessions. Pt denies HI, SIB, A/V hallucinations, paranoia, susi/hypomania, other symptoms more suggestive of a bipolar presentation, OCD, PTSD, eating disorder, and other specific psychiatric symptoms. Physical Exam Psychiatric Orientation: alert and oriented x 3 Apperance: appropriately dressed and appropriately groomed Eye Contact: good eye contact Motor Behavior: steady gait and station and no abnormal motor movements Speech: normal rate/rhythm/volume of speech Affect: + anxious affect (mild) Mood: no depressed mood Thought Process: goal directed thought process and linear/logical thought process Thought Content: no hopelessness perfectionism Suicidal Thoughts: denies suicidal thoughts, denies suicidal plan and denies suicidal intent Homicidal Thoughts: denies homicidal thoughts Hallucinations: no auditory hallucinations, no visual hallucinations and no tactile hallucinations Cognition: recent memory grossly intact, remote memory grossly intact, attention grossly intact and language grossly intact Estimated Intelligence: average estimated intelligence Insight: + fair insight Judgement: + fair judgement Vital Signs (Past 24 Hours) Last Vital Signs Temp 36.3 C L 12/27/18 09:31 Pulse 67 12/27/18 09:31 Resp 16 12/27/18 09:31 BP 118/76 12/27/18 09:31 Pulse Ox 100 12/27/18 09:31 Principal Diagnosis suicidal ideation Psychiatric Data Advance Directives Advance Directives Information Provided: Yes Mental Health Advance Directive: No Advance Directives on File: No Living Will: No Power of Medical Planner: No Advance Directives Reason:: Declines as Mental Health Visit. Risk Factors Assessment Male: No : No Do You Have Access To A Gun?: No Health Problems: No Mental Health Diagnoses: No Substance Use Disorders: No Previous Attempt: No Family History of Suicide: No Previous Psychiatric Hospitalization: No Hopelessness: Yes (occasionally) Smoker: No Protective Factors Assessment Anglican Beliefs: No : No Responsible for Young Children: No Employed: No Stable Relationships: Yes Supportive Family: Yes Discharge Data Lab Results 12/23/18 12/23/18 12/23/18 22:40 22:40 23:15 WBC 8.74 RBC 4.20 Hgb 13.1 Hct 38.1 MCV 90.7 MCH 31.2 MCHC 34.4 RDW Std Deviation 45.2 RDW Coeff of Maribeth 13.7 Plt Count 287 MPV 9.0 Immature Gran % (Auto) 0.1 Neut % (Auto) 75.0 Lymph % (Auto) 18.6 [place] % (Auto) 4.7 Eos % (Auto) 1.3 Baso % (Auto) 0.3 Immature Gran # (Auto) 0.01 Neut # (Auto) 6.55 H Lymph # (Auto) 1.63 [place] # (Auto) 0.41 Eos # (Auto) 0.11 Baso # (Auto) 0.03 Sodium Potassium Chloride Carbon Dioxide Anion Gap BUN Creatinine Est Cr Clr Drug Dosing Est GFR ( Amer) Est GFR (Non-Af Amer) BUN/Creatinine Ratio Glucose Calcium Total Bilirubin AST ALT Alkaline Phosphatase Total Protein Albumin Globulin Albumin/Globulin Ratio TSH HCG, Qual Urine Color Yellow Urine Appearance Clear Urine pH 5.0 Ur Specific [place] 1.032 H Urine Protein 1+ H Urine Glucose (UA) Negative Urine Ketones 4+ H Urine Blood Negative Urine Nitrite Negative Urine Bilirubin Negative Urine Urobilinogen Negative Ur Leukocyte Esterase 1+ H Urine WBC (Auto) 10-30 H Urine RBC (Auto) 0-4 U Hyaline Cast (Auto) 10-30 H U Epithel Cells (Auto) >30 H Urine Bacteria (Auto) Negative Salicylates Urine Opiates Screen Neg Ur Methadone, Qual Neg Acetaminophen Urine Barbiturates Neg Ur Phencyclidine (PCP) Neg U Amphetamin/Meth Scrn Neg MDMA (Ecstasy) Screen Neg U Benzodiazepines Scrn Neg Ur Cocaine Metabolite Neg U Marijuana (THC) Screen Neg Ethyl Alcohol mg/dL 12/23/18 12/23/18 12/23/18 23:15 23:15 23:16 WBC RBC Hgb Hct MCV MCH MCHC RDW Std Deviation RDW Coeff of Maribeth Plt Count MPV Immature Gran % (Auto) Neut % (Auto) Lymph % (Auto) [place] % (Auto) Eos % (Auto) Baso % (Auto) Immature Gran # (Auto) Neut # (Auto) Lymph # (Auto) [place] # (Auto) Eos # (Auto) Baso # (Auto) Sodium 140 Potassium 3.2 L Chloride 107 Carbon Dioxide 26 Anion Gap 7.0 BUN 12 Creatinine 0.65 Est Cr Clr Drug Dosing 108.3 Est GFR ( Amer) 147.1 Est GFR (Non-Af Amer) 126.9 BUN/Creatinine Ratio 18.6 Glucose 102 H Calcium 9.7 Total Bilirubin 0.6 AST 18 ALT 22 Alkaline Phosphatase 59 Total Protein 8.2 Albumin 4.2 Globulin 4.0 Albumin/Globulin Ratio 1.0 TSH 0.930 HCG, Qual Negative Urine Color Urine Appearance Urine pH Ur Specific [place] Urine Protein Urine Glucose (UA) Urine Ketones Urine Blood Urine Nitrite Urine Bilirubin Urine Urobilinogen Ur Leukocyte Esterase Urine WBC (Auto) Urine RBC (Auto) U Hyaline Cast (Auto) U Epithel Cells (Auto) Urine Bacteria (Auto) Salicylates Urine Opiates Screen Ur Methadone, Qual Acetaminophen Urine Barbiturates Ur Phencyclidine (PCP) U Amphetamin/Meth Scrn MDMA (Ecstasy) Screen U Benzodiazepines Scrn Ur Cocaine Metabolite U Marijuana (THC) Screen Ethyl Alcohol mg/dL < 3.0 12/23/18 23:16 WBC RBC Hgb Hct MCV MCH MCHC RDW Std Deviation RDW Coeff of Maribeth Plt Count MPV Immature Gran % (Auto) Neut % (Auto) Lymph % (Auto) [place] % (Auto) Eos % (Auto) Baso % (Auto) Immature Gran # (Auto) Neut # (Auto) Lymph # (Auto) [place] # (Auto) Eos # (Auto) Baso # (Auto) Sodium Potassium Chloride Carbon Dioxide Anion Gap BUN Creatinine Est Cr Clr Drug Dosing Est GFR ( Amer) Est GFR (Non-Af Amer) BUN/Creatinine Ratio Glucose Calcium Total Bilirubin AST ALT Alkaline Phosphatase Total Protein Albumin Globulin Albumin/Globulin Ratio TSH HCG, Qual Urine Color Urine Appearance Urine pH Ur Specific [place] Urine Protein Urine Glucose (UA) Urine Ketones Urine Blood Urine Nitrite Urine Bilirubin Urine Urobilinogen Ur Leukocyte Esterase Urine WBC (Auto) Urine RBC (Auto) U Hyaline Cast (Auto) U Epithel Cells (Auto) Urine Bacteria (Auto) Salicylates < 1.7 L Urine Opiates Screen Ur Methadone, Qual Acetaminophen < 2 L Urine Barbiturates Ur Phencyclidine (PCP) U Amphetamin/Meth Scrn MDMA (Ecstasy) Screen U Benzodiazepines Scrn Ur Cocaine Metabolite U Marijuana (THC) Screen Ethyl Alcohol mg/dL Hospital Course (1) Suicidal ideation: 12/24 - Admitted to a locked inpatient behavioral health unit, on q15 minute safety checks - Encourage medication initiation/adjustments as indicated - Encourage participation in group and recreational therapies - Gather collateral information from outpatient providers - Suggest family meeting to involve outpatient supports in safety planning - Arrange appropriate aftercare 12/25 - Patient feels safe here. Encourage focus on healthy coping skills and a discharge safety plan. 12/26 - Denies SI today, was encouraged to seek out a counselor when she is ready to work on her safety plan, as she is yet to complete one 12/27 - suicidal ideation remains resolved. Patient completed safety plan. Had family meeting with mother today and patient and her mother were also interviewed together prior to discharge by this clinician. We discussed negative distortion of thoughts precipitated by acute anxiety and psychosocial pressure and considered means to cope, slow things down, change perspective, get extra support when needed. She readily acknowledges that her perfectionism has been long-standing and she tends to be hard on herself if things do not work out as she expects. This was significant and contributing to her hopelessness that prompted the suicidal ideation. At present she is convincingly able to contract for safety and plans to follow up with outpatient therapy as scheduled. She readily agrees to return to the hospital should her suicidal ideation returns as she feels this was a very helpful and therapeutic place for her to be. (2) Anxiety disorder: 12/24 - R/O generalized anxiety disorder, panic disorder, as well as depressive disorder; no clear criteria provided by patient, but there could be some aspect of minimizing - No indication for initiation of medications based on patient's reports, continue to reassess need during her stay - Gather collateral information from outpatient supports, would be helpful to speak with her friends and petitioner on 302 - Pt has submitted her 72-hr notice, will attempt adequate aftercare arrangements and safety planning in that timeframe 12/25 -Continue to attend and participate in groups and therapy, work on coping skills, and refer for outpatient therapy. Family meeting with mother. 12/26 -Patient has been actively participating in group and recreational therapy, working on development of coping skills -Family meeting scheduled with mother tomorrow morning at 10 AM. 12/27 -Patient describes a tendency to anticipate negative outcomes, worry about the future, waking overnight feeling tense "like I have to do something" and perfectionistic tendencies suggestive of possible underlying obsessive- compulsive personality traits. Additionally she describes some interdependency with her friends and can feel more anxious when their reassurance is not quickly available. We discussed targets to pursue in psychotherapy and also encouraged her to consider pursuing low-dose antidepressant trial if her anxiety does not improve or worsens. Post Discharge Appointments Primary Care Physician Name Of Family Doctor: Dr Kyra Umaña - [facility] Time of Appointment with PCP: follow up as needed. Provider Appointment Comment: [address], [place] [address] Therapist Name of Therapist: Debbie Pimentel LCSW Therapist's Date of Therapist Appointment: 12/31/18 Time of Therapist Appointment: 1pm Therapy Appointment Comment: [address], [place] [address] Therapist Release of Information: Obtained, Reviewed and Signed Last Pattern Grader Name of Last Pattern Grader: [facility] - [facility] Phone Number for Last Pattern Grader: [phone] Date of Appointment with Last Pattern Grader: 12/29/18 Time of Appointment with Last Pattern Grader: 11:30am Case Management Appointment Comment: [address] [place] [address] Contact Information Discharge Discharge Address: [address] [facility] [address], [place] [address] Discharge Plan Discharge Items Patient Disposition: Home - Self-Care Reason For Visit: DEPRESSION,SUICIDAL IDEATION Discharge Diagnosis: suicidal ideation, unspecified anxiety disorder Condition: Good Discharge Goals: Specific goals Specific Goals: resolve suicidal ideation Activity: Resume your previous activity Non-emergency contact: Therapist Call non-emergency contact if: your symptoms worsen Follow-up/Referrals: PCP,NO [Primary Care Provider] - Diet: Regular Addtl Provider Instructions: Please follow up with your therapist as scheduled. As we discussed, you might benefit from antidepressant medication for your anxiety in the future. If your anxiety remains high, please request psychiatry referral from your therapist or [facility] Prescriptions: No Action No Known Home Medications RF: 0 Stand-Alone Forms: My [facility] Discharge Orders: Discharge Order (Routine); Ordered 12/27/18 Ordered By: Morris Barger Admission Data Admit Date/Time: 12/24/18 14:02 Attending Provider: Ashtyn Canela Admit Provider: Ashtyn Canela Primary Care Provider: PCP,NO Service: Psychiatry Other Interventions: Discharge Summary Assessment (RN) Last Done: 12/27/18 09:31 PSY Interdisciplinary Discharge Planning Last Done: 12/27/18 12:00 Pending Studies at Discharge: No
== END 2018-12-27 13:55 | disposition home or self-care (01) | DRG 880 ==
LOC: ED 22:12 → 3S 12-24 13:50